=== PATIENT | male | born 1960 | race Caucasian/White ===

== ENCOUNTER 2016-12-01 11:02 | Emergency (ER) | payer OTHER ==
--- NOTE | 2016-12-01 13:01 | UC ---
Respiratory Complaint HPI - HPI Summary HPI Summary: The patient comes in today for: 1. Chest congestion, sore throat, stuffy nose, Onset: 4 weeks Palliative/provocative: Laying down leads to a cough. Quality: Congestion. Region: [place]. Severity: 0/10 Time: Constant. Associated symptoms: Rhinitis: None. Cough: Dry. Shortness of breath: Present with exertion. Wheezing: Present. Inhalers: Symbicort 80/4.5 and albuterol. Chest pain: None. * - History of Current Complaint Chief Complaint: UCGeneralIllness Stated Complaint: SINUS,SORE THROAT,EAR PAIN,COUGH Time Seen by Provider: 12/01/16 12:55 Hx Obtained From: Patient - Allergies/Home Medications Allergies/Adverse Reactions: Allergies Allergy/AdvReac Type Severity Reaction Status Date / Time Codeine Allergy Unknown Hives Verified 12/01/16 11:30 PMH/Surg Hx/FS Hx/Imm Hx Previously Healthy: No - Chronic back pain, spinal stenosis, disc disease. 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 Denies: COPD, Bronchitis, Pneumonia, Pulmonary Embolism GI/ History Of: Reports: Gastroesophageal Reflux - He does not take anything for it. Denies: Ulcer, Gastrointestinal Bleed, Gall Bladder Disease, Kidney Stones, Diverticulitis, Renal Disease, Urosepsis Neurological History Of: Denies: TIA, CVA, Dementia, Seizures, Migraine Psychological History Of: Denies: Anxiety, Depression, Bipolar Disorder, Schizophrenia, Post Traumatic Stress Disorder Cancer History Of: Denies: Lung Cancer, Colorectal Cancer, Breast Cancer, Prostate Cancer, Cervical Cancer Other History Of: Negative For: HIV, Hepatitis B, Hepatitis C, Anticoagulant Therapy - Surgical History Surgical History: Yes Surgery Procedure, Year, and Place: Tonsillectomy as child. ORTHOSCOPY OF KNEES - Family History Known Family History: Positive: Hypertension Negative: Cardiac Disease, Diabetes - Social History Occupation: Employed Full-time, Disabled - From back pain. Alcohol Use: Occasionally Substance Use Type: Marijuana Substance Use Comment - Amount & Last Used: occasional use- last used last night Smoking Status (MU): Heavy Every Day Tobacco Smoker Type: Cigarettes Amount Used/How Often: 3-4 CIGS/DAY Length of Time of Smoking/Using Tobacco: 40 yrs Have You Smoked in the Last Year: Yes Household Exposure Type: Cigarettes Review of Systems Constitutional: Negative Skin: Negative Eyes: Negative ENT: Negative Respiratory: Cough Cardiovascular: Negative Gastrointestinal: Negative Genitourinary: Negative All Other Systems Reviewed And Are Negative: Yes Physical Exam Triage Information Reviewed: Yes Appearance: Well-Appearing, No Pain Distress, Well-Nourished Vital Signs: Initial Vital Signs Temp 98 F 12/01/16 11:24 Pulse 93 12/01/16 11:24 Resp 16 12/01/16 11:24 BP 128/90 12/01/16 11:24 Pulse Ox 97 12/01/16 11:24 Vital Signs Reviewed: Yes Eyes: Positive: Conjunctiva Clear. Negative: Discharge ENT: Positive: Hearing grossly normal. Negative: Pharyngeal erythema, Nasal congestion, Nasal drainage, TM bulging, TM dull, TM red, Tonsillar swelling, Tonsillar exudate Dental: Negative: Gross Decay/Caries @, Dental Fracture @ Neck: Positive: Supple, Nontender, No Lymphadenopathy. Negative: Nuchal Rigidity Respiratory: Positive: No respiratory distress, No accessory muscle use, Rhonchi , Wheezing, Other: - reduced inspiration/expiration cycle. Cardiovascular: Positive: RRR, No Murmur Abdomen Description: Positive: Nontender, No Organomegaly, Soft. Negative: Distended, Guarding Musculoskeletal: Positive: Strength Intact, ROM Intact Neurological: Positive: Alert, Muscle Tone Normal Psychological: Positive: Age Appropriate Behavior, Consolable Skin: Negative: rashes, breakdown UC Diagnostic Evaluation - Laboratory O2 Sat by Pulse Oximetry: 97 Respiratory Course/Dx - Course Course Of Treatment: The patient responded well to the DuoNeb. He felt better and his lungs sounded much better with less wheezing. He thought he had good insurance--never had any probelms with his prescriptions. He was told that I recommend that he use the higher dose of Symbicort and switch out his albuterol for Combivent. Will also start him on an oral dose of prednisone. He is to follow up with his primary care provider later this week or early next week. - Differential Dx/Diagnosis Provider Diagnoses: Bronchospasm. Asthma Discharge - Discharge Plan Condition: Stable Disposition: HOME Patient Education Materials: Bronchospasm (ED), Asthma (ED) Referrals: Andreea Meade [Primary Care Provider] - 1 Week (Please see your primary care provider later this week or early next week to see how well you are doing. If you get worse, please be seen sooner.)
[2016-12-01] MEDS ORDERED: Albuterol 2.5 MG/3 ML NEB.SOL* (0.083%) INH ONE (13:05)
[2016-12-01] MEDS ORDERED: Ipratropium 0.5MG/2.5ML NEB* 0.5 MG/2.5 ML NEB.SOLN INH ONE (13:05)
[2016-12-01 14:04] VITALS: BP 124/84
== END 2016-12-01 14:30 | disposition home or self-care (01) ==
LOC: UCCORT 11:02
DX: J45.901 Unspecified asthma with (acute) exacerbation (principal); Z88.5 Allergy status to narcotic agent; E78.5 Hyperlipidemia, unspecified; I10 Essential (primary) hypertension; K21.9 Gastro-esophageal reflux disease without esophagitis; F12.90 Cannabis use, unspecified, uncomplicated; F17.210 Nicotine dependence, cigarettes, uncomplicated
CPT/HCPCS: 99212; G0463; J7644

== ENCOUNTER 2018-07-09 14:05 | Emergency (ER) | payer MEDICARE, OTHER ==
[2018-07-09 14:48] VITALS: BP 137/84
== END 2018-07-09 15:30 | disposition left against medical advice (07) ==
LOC: UCCORT 14:05
DX: R10.9 Unspecified abdominal pain (principal); Z53.21 Procedure and treatment not carried out due to patient leaving prior to being seen by health care provider